=== PATIENT | female | born 2000 | race African-American/Black ===

== ENCOUNTER 2024-04-06 12:59 | Emergency (ER) | payer SELFPAY ==
[~2024-04-06] VITALS: Ht 149.9 cm; Wt 38.5 kg
[2024-04-06 13:01] VITALS: O2SAT 100
[2024-04-06 15:56] LABS: BASOPHILS % 0.2 % (0.0-2.0); DIFFERENTIAL COMMENT 0; HEMATOCRIT. 35.4 % (36.0-48.0); HEMOGLOBIN. 11.1 g/dL (12.0-16.0); LYMPHOCYTES % 8.1 % (20.0-50.0); MEAN CORPUSCULAR HEMOGLOBIN 24.6 pg (28.0-32.0); MEAN CORPUSCULAR HGB CONC 31.4 g/dL (31.0-37.0); MEAN CORPUSCULAR VOLUME 78.2 fL (81.0-99.0); MEAN PLATELET VOLUME 10.4 fl (7.4-10.4); NEUTROPHILS % 88.7 % (40.0-76.0); PLATELET 109 x1000/uL (130-400); RED BLOOD CELL COUNT 4.53 mill/uL (4.2-5.4); RED CELL DISTRIBUTION WIDTH 15.2 % (11.6-14.6); WHITE BLOOD COUNT 4.4 x1000/uL (4.5-11.0)
[2024-04-06 15:59] LABS: CHLORIDE 102 mEq/L (98-107); POTASSIUM 4.1 mEq/L (3.5-5.1); SODIUM 136 mEq/L (136-145)
[2024-04-06 16:00] LABS: CALCIUM 9.1 mg/dL (8.7-10.4); CARBON DIOXIDE 26 mEq/L (21-32)
[2024-04-06 16:05] LABS: GLUCOSE 92 mg/dL (70-105); UREA NITROGEN BLOOD 8 mg/dL (9-23)
[2024-04-06 16:06] LABS: TROPONIN I HIGH SENSITIVITY < 4 ng/L (3.0-34)
[2024-04-06 18:36] LABS: HCG SCREEN NEGATIVE
[2024-04-06] MEDS ORDERED: ALBU18HF2 IH (18:58)
[2024-04-06] MEDS ORDERED: AZIT250T12 MT (18:58)
[2024-04-06 19:17] VITALS: BP 148/78; PULSE 100; RESP 16; TEMP 37.16964; O2SAT 100
== END 2024-04-06 19:28 | disposition home or self-care (01) ==
LOC: ER 13:09
DX: R06.02 Shortness of breath (principal); R53.1 Weakness; R19.7 Diarrhea, unspecified; R00.0 Tachycardia, unspecified; R05.9 Cough, unspecified; Z20.822 Contact with and (suspected) exposure to COVID-19
CPT/HCPCS: 36415; 71046; 71275; 80048; 81025; 83880; 84484; 84703; 85025; 85379; 87426; 93005; 99285